=== PATIENT | female | born 1945 | race Caucasian/White ===

== ENCOUNTER → 2018-05-11 | Outpatient (CLI) | payer MEDICARE ==
[2018-05-11 16:18] LABS: Basophils % (A) 0 %; Eosinophils # (A) 0.1 k/uL (0-0.7); Eosinophils % (A) 3 %; HCT 38.2 % (34.0-46.0); HGB 12.8 gm/dL (11.4-16.0); Lymphocytes # (A) 1.3 k/uL (1.0-4.8); Lymphocytes % (A) 25 %; MCH 30.6 pg (25.0-35.0); MCHC 33.6 g/dL (31.0-37.0); MCV 91.2 fL (80.0-100.0); Mean Platelet Volume 7.9; Monocytes # (A) 0.3 k/uL (0-1.0); Monocytes % (A) 6 %; Neutrophils # (A) 3.4 k/uL (1.3-7.7); Neutrophils % (A) 65 %; Platelet Count 186 k/uL (150-450); RDW 12.8 % (11.5-15.5); WBC 5.3 k/uL (3.8-10.6)
[2018-05-11 16:20] LABS: Appearance,Urine Clear (Clear); Bilirubin,Urine Negative (Negative); Blood,Urine Negative (Negative); Color,Urine Light Yellow; Glucose,Urine (UA) Negative (Negative); Ketones,Urine Negative (Negative); Leukocyte Esterase,Urine Negative (Negative); Nitrite,Urine Negative (Negative); PH, Urine 6.5 (5.0-8.0); Protein,Urine Negative (Negative); Specific Gravity,Urine 1.007 (1.001-1.035); Urobilinogen,Urine <2.0 mg/dL (<2.0)
[2018-05-11 16:26] LABS: Partial Thromboplastin Time 24.1 sec (22.0-30.0); Prothrombin Time 9.8 sec (9.0-12.0)
[2018-05-11 16:29] LABS: ALT 31 U/L (9-52); AST 27 U/L (14-36); Albumin 4.1 g/dL (3.5-5.0); Alkaline Phosphatase 82 U/L (38-126); Anion Gap 8 mmol/L; Blood Urea Nitrogen 16 mg/dL (7-17); Calcium 9.8 mg/dL (8.4-10.2); Carbon Dioxide 29 mmol/L (22-30); Chloride 100 mmol/L (98-107); Glucose 94 mg/dL (74-99); Sodium 137 mmol/L (137-145); Total Bilirubin 0.5 mg/dL (0.2-1.3)
== END | disposition home or self-care (01) ==
LOC: LABPAT 15:36
PROVIDERS: ATTEND Orthopaedic Surgery
DX: Z01.812 Encounter for preprocedural laboratory examination (principal); Z79.01 Long term (current) use of anticoagulants
CPT/HCPCS: 80053; 81003; 85025; 85610; 85730; 87070

== ENCOUNTER 2018-05-19 09:57 | Inpatient (IN) | payer MEDICARE ==
[2018-05-18 08:37] VITALS: BMI 44.1
[~2018-05-19 09:57] MED LIST: ACETAMINOPHEN TAB 500 MG TAB PO ONE; DEXAMETHASONE SOD PHOSPHATE 10 MG/ML 1 ML VIAL IV ONE; HYDROmorphone 0.5 MG/0.5 ML SYRINGE IVP PRN; MELOXICAM 7.5 MG TAB PO ONE; MORPHINE SULFATE 2 MG/ML SYRINGE IV PRN; ONDANSETRON 4 MG/2 ML VIAL IVP ONE; ONDANSETRON 4 MG/2 ML VIAL IVP PRN; ROPIVACAINE 246.25 MG, EPINEPHrine 0.5 MG, KETOROLAC 30 MG, cloNIDine HCL/PF 80 MCG, WA... MISCELLANE ONE; TRANEXAMIC ACID 1,000 MG in SODIUM CHLORIDE 0.9% 50 ML IVPB ONE; ceFAZolin IN SWFI 2 GM/20 ML SYRINGE IVP ONE
[2018-05-19] MEDS: LACTATED RINGERS 1,000 ML IV SCH ×2 (12:16→21:11)
[2018-05-19] MEDS ORDERED: LIDOCAINE 1% 20 ML VIAL (10MG/ML) FOR IV START INTRADERMA ONE (12:16)
[2018-05-19] MEDS ORDERED: fentaNYL (PF) 50 MCG/ML 2 ML AMP ONE (13:15)
[2018-05-19] MEDS ORDERED: PROPOFOL 10 MG/ML 20 ML VIAL IV ONE (13:15)
[2018-05-19] MEDS ORDERED: MIDAZOLAM 2 MG/2 ML VIAL ONE (13:15)
[2018-05-19] MEDS ORDERED: LIDOCAINE 1% INJ 10MG/ML (20 ML MDV) ONE (13:15)
[2018-05-19] MEDS ORDERED: SODIUM CHLORIDE 0.9% 100 ML BAG ONE (13:15)
[2018-05-19] MEDS ORDERED: TRANEXAMIC ACID 1,000 MG/10 ML VIAL ONE (13:15)
[2018-05-19] MEDS ORDERED: BUPIVACAINE (PF) 0.5% 30 ML VIAL ONE (13:15)
[2018-05-19] MEDS ORDERED: NALOXONE 0.4 MG/ML 1 ML VIAL IV PRN (13:43)
[2018-05-19] MEDS ORDERED: NA PHOS,M-B/NA PHOS,DI-BA 133 ML ENEMA RECTAL PRN (13:43)
[2018-05-19] MEDS ORDERED: MAGNESIUM HYDROXIDE 2,400 MG/10 ML CUP PO PRN (13:43)
[2018-05-19] MEDS ORDERED: HYDROcodone/APAP 5-325MG 1 EACH TAB PO PRN (13:43)
[2018-05-19] MEDS ORDERED: HYDROmorphone 1 MG/ML 1 ML SYRINGE IVP PRN ×3 (13:43)
[2018-05-19] MEDS ORDERED: BISACODYL 10 MG SUPP RECTAL PRN (13:43)
[2018-05-19] MEDS ORDERED: DIAZEPAM 5 MG TAB PO PRN (13:43)
[2018-05-19] MEDS ORDERED: LACTATED RINGERS 1,000 ML IV ONE (14:10)
--- NOTE | 2018-05-19 14:13 | P.OP ---
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 Anesthesia: spinal Surgeon: Abdi Gomes Pumper Gauger #1: Veena Astudillo Estimated Blood Loss (ml): 50 Pathology: none sent Condition: stable Disposition: PACU Indications for Procedure: This is a 72-year-old female has had a prior left total knee arthroplasty performed by my associate Dr. Cabrera approximately 13 years ago. She has been experiencing pain and swelling in her knee, and the x-rays demonstrate wear of the polyethylene of the left total knee. After discussing the surgical nonsurgical treatment options with her at length, I recommended a revision of the polyethylene liner and informed consent was obtained. Operative Findings: Operative findings are consistent with failure of the polyethylene liner of the left total knee. Description of Procedure: Patient was seen in the preoperative area consent was reviewed and operative site was marked with a skin marker. Patient was then brought to the operating room and given preoperative antibiotics intravenously. A spinal anesthetic was administered by the anesthesia department. A tourniquet was placed on the upper thigh and the lower extremity was prepped and draped in usual sterile fashion. A gram of transexamic acid was given. A universal timeout was then performed which confirmed the patient's name, surgical site, ALLERGIES, and consent. The lower extremity was then exsanguinated and tourniquet was inflated to 250 mmHg. A standard and anterior midline approach to the knee was performed. The skin and subcutaneous tissue was dissected down to the patellar tendon, with the prior scar being excised.. A medial parapatellar arthrotomy was then performed. The knee was then extended, the patellar was everted, and the knee was again flexed. The polyethylene was inspected, and found to be extensively worn, mostly posterior. There was a moderate amount of metallosis within the knee as well. The locking pin was then removed and the old polyethylene was then removed without incident. The metallosis was then removed with a Ronguer, the knee was copiously irrigated with pulsatile lavage. The components were inspected and found to be well fixed. The trial polyethylene was then placed, the knee was able to fully extend and flex to 115 and was stable throughout. The trial was then removed. The posterior structures were injected with the ropivacaine solution. The knee was also irrigated with Irrisept solution. The final polyethylene was then placed and the locking pin placed. Again, the knee was taken through a full range of motion and was found to be stable through 0-115. The remaining soft tissues were then injected with a ropivacaine solution, which consisted of 246.25 mg of ropivacaine, 0.5 mg of epinephrine, 30 mg of Toradol, 80 g of clonidine, and 48.45 mL of sterile water, for a total of 100 mL of fluid injected. The tourniquet was released, and hemostasis was obtained. A second gram of transexamic acid was given. The knee was again irrigated. The knee was again taken through range of motion and found to be stable throughout all range of motion of 0-130, and the patella tracked normally. The fascia was then closed with #2 strata fix suture. The subcutaneous tissue was closed with 3-0 Vicryl and 3-0 strata fix. Dermabond glue was used for the skin and placed with the knee in flexion. The patient was placed in a sterile silver dressing. Patient was then transferred to recovery room in stable condition. The acute care nursing assistant KAUSHIK Louise was required due the complexity surgery and the need for a skilled surgical orderly. She assisted in positioning, draping, retraction, and closure of the wound.
--- NOTE | 2018-05-19 15:38 | XR ---
EXAMINATION TYPE: XR knee limited LT DATE OF EXAM: 05/19/2018 COMPARISON: NONE TECHNIQUE: Two views submitted HISTORY: Post op FINDINGS: There is a prosthetic knee in near anatomic alignment. There is soft tissue edema and emphysema. Di ffuse osteopenia noted. IMPRESSION: 1. Postoperative change. Appears in near-anatomic alignment
[2018-05-19] MEDS ORDERED: ceFAZolin 3 GM in SODIUM CHLORIDE 0.9% 100 ML IVPB SCH (16:00)
[2018-05-19] MEDS: HYDROmorphone 1 MG/ML 1 ML SYRINGE IVP ONE ×2 (16:32→16:42)
[2018-05-19] MEDS ORDERED: hydrOXYzine HCL 25 MG TAB PO PRN (19:32)
[2018-05-19] MEDS ORDERED: SENNOSIDES-DOCUSATE SODIUM 1 EACH TAB PO SCH (21:00)
[2018-05-19] MEDS ORDERED: FLUTICASONE 50MCG/SPRAY NASAL 16GM EA NOSTRIL SCH (21:00)
[2018-05-19] MEDS: HYDROcodone/APAP 5-325MG 1 EACH TAB PO PRN (21:21)
[2018-05-19] MEDS: SODIUM CHLORIDE 0.9% 1,000 ML IV SCH (21:21)
--- NOTE | 2018-05-20 05:14 | CONS ---
CONSULTATION POSTOPERATIVE CONSULTATION Consultation regarding postoperative medical management. HISTORY OF PRESENT ILLNESS: This 72-year-old female is status post left knee surgery. The patient did relatively well. She is awake, alert. The patient is seen postoperatively this evening at about 7:45 p.m. PAST MEDICAL HISTORY: Significant for hypertension, degenerative arthritis, hypothyroidism, and recurrent urticaria. PAST SURGICAL HISTORY: Significant for bilateral knee arthroplasties. PERSONAL HISTORY: Nonsmoker. No alcohol. MEDICATIONS: Medications at present include cefazolin, hydrocodone and hydromorphone. The patient is on enalapril hydrochlorothiazide 5/12.5 two daily, levothyroxine 25 mcg daily, hydroxyzine 25 mg at bedtime p.r.n. and Flonase nasal inhaler. SOCIAL HISTORY: Patient , lives with her spouse. Works as a school resource officer. FAMILY MEDICAL HISTORY: Son in good health. REVIEW OF SYSTEMS: NEURO: Denies any headaches, dizziness. PSYCH: No anxiety, depression. CARDIAC: No chest pain, angina, palpitation. RESPIRATORY: No shortness of breath, cough, hemoptysis. GI: No nausea, vomiting, abdominal pain, diarrhea. : No symptoms of dysuria, hematuria. EXTREMITIES: Some pain, burning pain at the left knee. CONSTITUTIONAL: No fever, chills. PHYSICAL EXAMINATION: Pleasant female, at present in no distress. Vital signs reveals at the time of my evaluation the patient's heart rate was 74, blood pressure 100/70, afebrile, respiratory rate 18, pulse ox 97%. HEENT: Normocephalic. NECK: Supple. No JVD. CHEST: Clear to auscultation and percussion. CARDIAC: Normal S1, S2 with no gallops or murmurs. ABDOMEN: Soft. Bowel sounds present. Extremities reveal no edema. Good pulses both upper extremities. Bilateral pedal pulses are normal. NEUROLOGIC: Awake, alert, oriented with well-coordinated movements both upper extremities. LABORATORY ASSESSMENT: None new. ASSESSMENT: 1. History of hypertension. 2. Hypothyroidism on replacement therapy. 3. Degenerative arthritis especially affecting the knee joints. 4. Obesity. PLAN: The patient is stable. Continue present medical regimen. Patient's condition discussed with the patient. Prognosis is guarded. The patient's blood pressure since it has been on the lower side, will hold the patient's tomorrow. The patient condition discussed with the patient. Prognosis guarded. MMODL / IJN: [id number] /
[2018-05-20] MEDS ORDERED: LEVOTHYROXINE 25 MCG TAB PO SCH (06:30)
[2018-05-20] MEDS: SODIUM CHLORIDE 0.9% 1,000 ML IV SCH (07:22)
[2018-05-20 08:10] VITALS: BP 121/75; PULSE 81; RESP 20; TEMP 98.1
[2018-05-20] MEDS: HYDROcodone/APAP 5-325MG 1 EACH TAB PO PRN (08:19)
[2018-05-20] MEDS: HYDROCHLOROTHIAZIDE 25 MG TAB PO SCH ×2 (08:19→09:49)
[2018-05-20] MEDS ORDERED: RIVAROXABAN 10 MG TAB PO SCH (09:00)
[2018-05-20] MEDS ORDERED: LISINOPRIL 20 MG TAB PO SCH (09:00)
[2018-05-20 09:31] LABS: Basophils % (A) 0 %; Eosinophils # (A) 0.1 k/uL (0-0.7); Eosinophils % (A) 1 %; HCT 36.2 % (34.0-46.0); HGB 11.8 gm/dL (11.4-16.0); Lymphocytes # (A) 1.1 k/uL (1.0-4.8); Lymphocytes % (A) 13 %; MCH 29.9 pg (25.0-35.0); MCHC 32.6 g/dL (31.0-37.0); MCV 91.9 fL (80.0-100.0); Mean Platelet Volume 8.2; Monocytes # (A) 0.4 k/uL (0-1.0); Monocytes % (A) 5 %; Neutrophils % (A) 81 %; Platelet Count 169 k/uL (150-450); RBC 3.94 m/uL (3.80-5.40); RDW 12.7 % (11.5-15.5); WBC 8.7 k/uL (3.8-10.6)
--- NOTE | 2018-05-20 09:45 | P.DS ---
Providers Date of admission: 05/19/18 11:15 Expected date of discharge: 05/20/18 Attending physician: Abdi Gomes Consults: 05/19/18 13:43 Consult Physician Routine Consulting Provider: Ravindra Castano Consult Reason/Comments: medical management Do you want consulting provider notified?: Yes Primary care physician: Ravindra Castano - Discharge Diagnosis(es) (1) Polyethylene liner wear following total knee arthroplasty requiring isolated polyethylene liner exchange Current Visit: Yes Status: Acute Hospital Course: This is a 72-year-old female with known history of left total knee arthroplasty with polyethylene wear. The patient presents for evaluation. After discussion and consideration patient elects to proceed with revision left total knee arthroplasty. The patient is seen preoperatively by Dr. Gomes and medically cleared for surgery by their primary care physician. Patient is admitted to [facility] on 05/19/2018 for revision total knee arthroplasty. The procedures performed without complication or sequelae. The patient is doing well postoperatively. Labs and vital signs are stable on day of discharge. On day of discharge patient's knee incision is healing well. There is minimal erythema. There is no drainage noted at this time. There is minimal soft tissue swelling to the knee. Patient has full foot and ankle motion without difficulty or pain. Neurovascular status to the left lower extremity is intact. Patient is discharged home in good condition. Please see med rec for accurate list of home medications. Plan - Discharge Summary Discharge Rx Participant: Yes New Discharge Prescriptions: New HYDROcodone/APAP 5-325MG [[place] 5-325] 1 - 2 tab PO Q4-6H PRN #84 tab PRN Reason: Pain Rivaroxaban [Xarelto] 10 mg PO DAILY #30 tab Sennosides [Senokot] 1 tab PO BID #60 tablet No Action HYDROcodone/APAP 7.5-325MG [[place] 7.5-325] 1 tab PO Q6HR PRN PRN Reason: Pain Fluticasone Nasal [place] [Flonase Nasal [place]] 2 spr EA NOSTRIL HS Enalapril/Hydrochlorothiazide [Vaseretic 5-12.5 mg] 2 tab PO DAILY hydrOXYzine HCL 25 mg PO HS PRN PRN Reason: Itching Levothyroxine Sodium 25 mcg PO DAILY Discharge Medication List Enalapril/Hydrochlorothiazide [Vaseretic 5-12.5 mg] 2 tab PO DAILY 05/18/18 [ History] Fluticasone Nasal [place] [Flonase Nasal [place]] 2 spr EA NOSTRIL HS 05/18/18 [ History] HYDROcodone/APAP 7.5-325MG [[place] 7.5-325] 1 tab PO Q6HR PRN 05/18/18 [History] Levothyroxine Sodium 25 mcg PO DAILY 05/18/18 [History] hydrOXYzine HCL 25 mg PO HS PRN 05/18/18 [History] HYDROcodone/APAP 5-325MG [[place] 5-325] 1 - 2 tab PO Q4-6H PRN #84 tab 05/20/18 [ Rx] Rivaroxaban [Xarelto] 10 mg PO DAILY #30 tab 05/20/18 [Rx] Sennosides [Senokot] 1 tab PO BID #60 tablet 05/20/18 [Rx] Follow up Appointment(s)/Referral(s): Abdi Gomes DO [Doctor of Osteopathic Medicine] - 2 Weeks Ambulatory/Diagnostic Orders: Continuous Passive Motion (CPM) Machine [DME.AMB1] Time Frame: 3 Weeks, Location : None Selected Activity/Diet/Wound Care/Special Instructions: Weightbearing as tolerated with a walker. CPM 5-6h daily. Leave dressing intact. May be removed by home care nurse in 10 days. May shower with dressing on. Please follow up with [facility] and call with any questions or concerns, . Discharge Disposition: HOME WITH HOME HEALTH SERVICES
--- NOTE | 2018-05-20 23:39 | PN ---
PROGRESS NOTE ATTENDING PHYSICIAN: Dr. Jyotsna Castano HISTORY OF PRESENT ILLNESS: This 72-year-old was admitted to the hospital and undergone left knee revision. The patient has had a previous total knee arthroplasty. She has underlying history of hypertension, hypothyroidism, and doing fairly well. REVIEW OF SYSTEMS: Neuro: Has a headache. No dizziness. No double vision. Psych: No anxiety or depression. Cardiac: No chest pain, angina, palpitations. Respiratory: No shortness of breath, cough, hemoptysis. GI no nausea, vomiting, abdominal pain, diarrhea. : No symptoms of dysuria, hematuria. : Extremities pain in the left knee joint. Constitutional: No fever or chills. PHYSICAL EXAMINATION: Pleasant female in no distress. Vital signs revealed temperature 98.1, pulse 81, respirations 20, blood pressure 121/75, pulse ox 98% on room air. HEENT: Normocephalic. NECK: Supple. No JVD. CHEST: Clear to auscultation and percussion. Cardiac: Normal S1, S2 with no gallops, murmurs. ABDOMEN: Soft. Bowel sounds normal. Extremities revealed trace edema at the ankles. Neurologically: Awake, alert, oriented x3 with well-coordinated movements both upper extremities. LABORATORY ASSESSMENT: CBC which was normal. ASSESSMENT: 1. Hypertension on medical therapy. 2. Hypothyroidism. 3. Degenerative arthritis, status post left knee surgery. PLAN: The patient is stable. Continue present medical regimen. Patient's condition discussed with the patient. Hold antihypertensives today. The patient will resume her enalapril once the blood pressure starts running greater than 130 at home. The patient's condition discussed with the patient. MMODL / IJN: [id number] /
== END 2018-05-20 14:03 | disposition home health service (06) | DRG 488 ==
LOC: 2ORMAIN 11:15 → 4SSUR 16:56
PROVIDERS: ADMIT Orthopaedic Surgery; ATTEND Orthopaedic Surgery
PROC: 0SUW09Z Supplement Left Knee Joint, Tibial Surface with Liner, Open Approach (ICD-10-PCS; 2018-05-19)
PROC: 0SPD09Z Removal of Liner from Left Knee Joint, Open Approach (ICD-10-PCS; principal; 2018-05-19 13:45)
DX: T84.063A Wear of articular bearing surface of internal prosthetic left knee joint, initial encounter (principal); Z68.41 Body mass index [BMI] 40.0-44.9, adult; T84.023A Instability of internal left knee prosthesis, initial encounter; E03.9 Hypothyroidism, unspecified; I10 Essential (primary) hypertension; L50.9 Urticaria, unspecified; R26.81 Unsteadiness on feet; E66.01 Morbid (severe) obesity due to excess calories; Z79.890 Hormone replacement therapy; Z79.899 Other long term (current) drug therapy; Z90.49 Acquired absence of other specified parts of digestive tract; Z85.828 Personal history of other malignant neoplasm of skin; Z86.718 Personal history of other venous thrombosis and embolism; Z88.1 Allergy status to other antibiotic agents; Z96.651 Presence of right artificial knee joint; Z96.611 Presence of right artificial shoulder joint; Y79.2 Prosthetic and other implants, materials and accessory orthopedic devices associated with adverse incidents
CPT/HCPCS: 85025

== ENCOUNTER → 2018-06-19 | Outpatient (CLI) | payer MEDICARE ==
--- NOTE | 2018-06-19 10:11 | US ---
EXAMINATION TYPE: US venous doppler duplex LE LT DATE OF EXAM: 06/19/2018 7:48 AM COMPARISON: NONE CLINICAL HISTORY: M79.89 Other specified soft tissue disorders. Left knee surgery 05/10. large amount of edema left lower leg. History of DVT SIDE PERFORMED: left TECHNIQUE: The lower extremity deep venous system is examined utilizing real time linear array sonog rudy with graded compression, doppler sonography and color-flow sonography. VESSELS IMAGED: External Iliac Vein (EIV) Common Femoral Vein Deep Femoral Vein Greater Saphenous Vein * Femoral Vein Popliteal Vein Small Saphenous Vein * Proximal Calf Veins (* superficial vessels) Left Leg: No evidence of DVT as visualized. Superficial thrombus noted left small saph vein IMPRESSION: 1. Left lower extremity ultrasound negative for deep venous thrombosis.
== END ==
LOC: RADUSWWP 07:22
PROVIDERS: ATTEND Internal Medicine
DX: M79.89 Other specified soft tissue disorders (principal)

== ENCOUNTER → 2019-02-25 | Outpatient (CLI) | payer MEDICARE ==
--- NOTE | 2019-03-01 09:32 | MM ---
Reason for exam: screening (asymptomatic). Last mammogram was performed 2 years and 2 months ago. History: Patient is postmenopausal and history of other cancer. Physical Findings: A clinical breast exam by your physician is recommended on an annual basis and results should be correlated with mammographic findings. MG 3D Screening Mammo W/Cad Bilateral CC and MLO view(s) were taken. Prior study comparison: January 02, 2017, mammogram. October 08, 2013, mammogram. There is chronic nodularity in the left breast. Scattered benign oil cyst calcifications greater in the left breast. No significant changes when compared with prior studies. ASSESSMENT: Benign, BI-RAD 2 RECOMMENDATION: Routine screening mammogram of both breasts in 1 year.
== END | disposition home or self-care (01) ==
LOC: RADMAMWWP 16:41
PROVIDERS: ATTEND Internal Medicine
DX: Z12.31 Encounter for screening mammogram for malignant neoplasm of breast (principal)
CPT/HCPCS: 77063; 77067

== ENCOUNTER 2019-07-21 07:50 | Day surgery (SDC) | payer MEDICARE ==
[2019-07-19 18:03] VITALS: BMI 39.9
[~2019-07-21 07:50] MED LIST changes: -ACETAMINOPHEN TAB 500 MG TAB PO ONE; -DEXAMETHASONE SOD PHOSPHATE 10 MG/ML 1 ML VIAL IV ONE; -HYDROmorphone 0.5 MG/0.5 ML SYRINGE IVP PRN; +LACTATED RINGERS 1,000 ML IV SCH; +LIDOCAINE 1% (10MG/ML) FOR IV START INTRADERMA PRN; -MELOXICAM 7.5 MG TAB PO ONE; -MORPHINE SULFATE 2 MG/ML SYRINGE IV PRN; -ONDANSETRON 4 MG/2 ML VIAL IVP ONE; -ONDANSETRON 4 MG/2 ML VIAL IVP PRN; -ROPIVACAINE 246.25 MG, EPINEPHrine 0.5 MG, KETOROLAC 30 MG, cloNIDine HCL/PF 80 MCG, WA... MISCELLANE ONE; -TRANEXAMIC ACID 1,000 MG in SODIUM CHLORIDE 0.9% 50 ML IVPB ONE; -ceFAZolin IN SWFI 2 GM/20 ML SYRINGE IVP ONE
[2019-07-21 08:21] VITALS: TEMP 98.2
[2019-07-21] MEDS ORDERED: LIDOCAINE 1% INJ 10MG/ML (20 ML MDV) ONE (08:54)
[2019-07-21] MEDS ORDERED: PROPOFOL 10 MG/ML 20 ML VIAL IV ONE (08:54)
--- NOTE | 2019-07-21 09:17 | P.PCN ---
Date of Procedure: 07/21/19 Procedure(s) Performed: BRIEF HISTORY: Patient is a 74-year-old pleasant white female scheduled for an elective colonoscopy as a part of screening for colorectal neoplasia. Her last colonoscopy was 10 years ago. PROCEDURE PERFORMED: Colonoscopy with biopsy and snare polypectomy PREOPERATIVE DIAGNOSIS: Screening for colon cancer. IV sedation per Anesthesia. PROCEDURE: After informed consent was obtained, the patient, was brought into the endoscopy unit. IV sedation was administered by Anesthesia under continuous monitoring. Digital rectal examination was normal. Initially the Olympus CF-160 flexible video colonoscope was then inserted in the rectum, gradually advanced into the cecum without any difficulty. Careful examination was performed as the scope was gradually being withdrawn. Ileocecal valve and the appendiceal orifice were visualized and appeared normal. Prep was excellent. Mucosa of the cecum appeared normal. In the Ascending colon there was a 2 mm polyp that was removed by biopsy. Rest of the, ascending colon, transverse colon, descending colon, sigmoid colon, and rectum appeared normal. The proximal rectum there was a 5 limited polyp that was removed by snare polypectomy Retroflexion was performed in the rectum and no lesions were seen. The patient tolerated the procedure well. IMPRESSION: 2 mm ascending colon polyp status post removal by cold biopsy 5 mm proximal rectal polyp status post snare polypectomy RECOMMENDATIONS: Findings of this examination were discussed with the patient as well as a family. She was advised to follow with the biopsy results. If the biopsy shows an adenoma she can have a repeat colonoscopy in 5
[2019-07-21 09:23] VITALS: RESP 16
[2019-07-21 09:32] VITALS: BP 116/74; PULSE 77
== END 2019-07-21 09:49 | disposition home or self-care (01) ==
LOC: ORWHC2ENDO 07:50
PROVIDERS: ATTEND Internal Medicine Gastroenterology
DX: Z12.11 Encounter for screening for malignant neoplasm of colon (principal); D12.2 Benign neoplasm of ascending colon; K62.1 Rectal polyp; M19.90 Unspecified osteoarthritis, unspecified site; Z79.899 Other long term (current) drug therapy; Z79.891 Long term (current) use of opiate analgesic; Z88.1 Allergy status to other antibiotic agents; Z79.890 Hormone replacement therapy; Z91.89 Other specified personal risk factors, not elsewhere classified
CPT/HCPCS: 88305; 45380; 45385; J2001; J2704

== ENCOUNTER → 2020-07-04 | Outpatient (CLI) | payer MEDICARE ==
--- NOTE | 2020-07-06 13:51 | MM ---
Reason for exam: screening (asymptomatic). Last mammogram was performed 1 year and 4 months ago. History: Patient is postmenopausal and has history of other cancer at age 59. Physical Findings: A clinical breast exam by your physician is recommended on an annual basis and results should be correlated with mammographic findings. MG 3D Screening Mammo W/Cad Bilateral CC and MLO view(s) were taken. Prior study comparison: February 25, 2019, bilateral MG 3d screening mammo w/cad. January 02, 2017, mammogram. There are scattered fibroglandular densities. There is chronic nodularity in the right breast anteriorly and the left breast centrally. Benign oil cysts on the left. No significant changes when compared with prior studies. ASSESSMENT: Benign, BI-RAD 2 RECOMMENDATION: Routine screening mammogram of both breasts in 1 year.
== END | disposition home or self-care (01) ==
LOC: RADMAMWWP 13:12
PROVIDERS: ATTEND Internal Medicine
DX: Z12.31 Encounter for screening mammogram for malignant neoplasm of breast (principal)
CPT/HCPCS: 77063; 77067

== ENCOUNTER → 2020-07-05 | Outpatient (CLI) | payer MEDICARE ==
--- NOTE | 2020-07-06 06:41 | BD ---
EXAMINATION TYPE: Axial Bone Density DATE OF EXAM: 07/05/2020 COMPARISON: 03/05/2002 report. CLINICAL HISTORY: Postmenopausal female Height: 65.5 IN Weight: 282 LBS FRAX RISK QUESTIONS: Family History (Parent hip fracture): YES MOTHER History of Fracture in Adulthood: LT FOOT FX AGE 69 RISK FACTORS HISTORY OF: Active: MODERATE Diet low in dairy products/other sources of calcium: YES Postmenopausal woman: AGE 49 Take estrogen and/or progesterone medications: NOT NOW How lon YEARS Lost more than 2 inches in height since high school: YES 3" MEDICATIONS: Thyroid Medications: YES Which medication: Levothyroxine How Lon+ YEARS Additional Medications: LEVOTHYROXINE,BLOOD PRESSURE MEDS, ATARAX,NASAL SPRAY FOR ALLERGIES EXAM MEASUREMENTS: Bone mineral densitometry was performed using the [employer] System. Bone mineral density as measured about the Lumbar spine is: ----- L1-L4(G/cm2): 1.383 T Score Values are as follows: ----- L2: 3.2 ----- L3: 2.5 ----- L4: 0.8 ----- L1-L4: 1.7 Bone mineral density has: Increased 9.1% since study of: 03/05/2002 Bone mineral density about the R hip (g/cm2): 0.908 Bone mineral density about the L hip (g/cm2): 0.850 T Score values are as follows: -----R Neck: -0.9 -----L Neck: -1.3 -----R Total: -0.9 -----L Total: -1.5 Bone mineral density has: Decreased -14.1% since study of: 03/05/2002 IMPRESSION: Osteopenia (T Score between -2.5 and -1) in both hips. There is slightly increased risk of fracture and the patient may be considered for treatment. Re-Screen 2-5 years. NOTE: T-SCORE=SD OF THE YOUNG ADULT MEAN.
== END | disposition home or self-care (01) ==
LOC: RADBDWWP 16:07
PROVIDERS: ATTEND Internal Medicine
DX: Z13.820 Encounter for screening for osteoporosis (principal); M85.89 Other specified disorders of bone density and structure, multiple sites; Z78.0 Asymptomatic menopausal state
CPT/HCPCS: 77080

== ENCOUNTER → 2021-08-31 | Outpatient (CLI) | payer MEDICARE ==
--- NOTE | 2021-09-03 11:06 | MM ---
Reason for exam: screening (asymptomatic). Last mammogram was performed 1 year and 2 months ago. History: Patient is postmenopausal and has history of other cancer at age 59. Physical Findings: A clinical breast exam by your physician is recommended on an annual basis and results should be correlated with mammographic findings. MG 3D Screening Mammo W/Cad Bilateral CC, MLO, and XCCL view(s) were taken. Prior study comparison: July 04, 2020, bilateral MG 3d screening mammo w/cad. February 25, 2019, bilateral MG 3d screening mammo w/cad. There are scattered fibroglandular densities. Stable benign calcifications. There is no discrete abnormality. No significant changes when compared with prior studies. ASSESSMENT: Benign, BI-RAD 2 RECOMMENDATION: Routine screening mammogram of both breasts in 1 year.
== END | disposition home or self-care (01) ==
LOC: RADMAMWWP 11:19
PROVIDERS: ATTEND Internal Medicine
DX: Z12.31 Encounter for screening mammogram for malignant neoplasm of breast (principal); Z78.0 Asymptomatic menopausal state
CPT/HCPCS: 77063; 77067

== ENCOUNTER → 2022-10-17 | Outpatient (CLI) | payer MEDICARE ==
--- NOTE | 2022-10-18 08:27 | MM ---
Reason for Exam: Screening (asymptomatic). Last mammogram was performed 1 year(s) and 1 month(s) ago. Patient History: Menarche at age 11. First Full-Term at age 25. Postmenopausal. Other cancer, age 59. Risk Values: [place] 5 year model risk: 1.9%. NCI Lifetime model risk: 3.4%. Prior Study Comparison: 02/25/2019 Bilateral Screening Mammogram, [facility]. 07/04/2020 Bilateral Screening Mammogram, [facility]. 08/31/2021 Bilateral Screening Mammogram, [facility]. Tissue Density: There are scattered fibroglandular densities. Findings: Analyzed By CAD. A few tiny scattered benign-appearing round calcifications bilaterally are redemonstrated. There is no suspicious group of microcalcifications or new suspicious mass in either breast. Overall Assessment: Benign, BI-RAD 2 Management: Screening Mammogram of both breasts in 1 year. . Patient should continue monthly self-breast exams. A clinical breast exam by your physician is recommended on an annual basis. This exam should not preclude additional follow-up of suspicious palpable abnormalities. Note on Olya scores and lifetime risk: 1. A Olya score greater than 3% is considered moderate risk. If this is the case, consider specialist referral to assess eligibility for a risk reducing agent. 2. If overall lifetime risk for the development of breast cancer is 20% or higher, the patient may qualify for future screening with alternating mammogram and breast MRI. Electronically signed and approved by: Mp Mcdonnell M.D.
== END | disposition home or self-care (01) ==
LOC: RADMAMWWP 15:58
PROVIDERS: ATTEND Family Medicine
DX: Z12.31 Encounter for screening mammogram for malignant neoplasm of breast (principal); Z78.0 Asymptomatic menopausal state
CPT/HCPCS: 77063; 77067

== ENCOUNTER → 2023-02-27 | Outpatient (CLI) | payer MEDICARE ==
--- NOTE | 2023-02-27 19:51 | BD ---
EXAMINATION TYPE: Axial Bone Density DATE OF EXAM: 02/27/2023 CLINICAL HISTORY: 77 years old Female. ICD-10 CODE: Z78.0 ASYMPTOMATIC MENOPAUSAL STATE Height: 65.3 Weight: 245 FRAX RISK QUESTIONS: Family History (Parent hip fracture): yes Glucocorticoids (More than 3mos): yes, for allergies and illness (Ex: prednisone, prednisolone, methylprednisolone, dexamethasone, and hydrocortisone). History of Fracture in Adulthood: yes RISK FACTORS HISTORY OF: hx of foot fracture as an adult, Family History of Osteoporosis: yes, mother Diet low in dairy products/other sources of calcium: yes Postmenopausal woman: at 49 Take estrogen and/or progesterone medications: in the past for 5 yrs. Lost more than 2 inches in height since high school: yes Frequent falls: unsteady Hyperparathyroidism: no Adrenal Insufficiency: no MEDICATIONS: Prednisone or other steroids: Flonase steriod spray, for many yrs Thyroid Medications: yes, synthroid product for 9 yrs Additional Medications: bp meds, allergy meds, atarax, vit d and calcium, nsaids, pain meds Additional History: osteoarthritis, allergies, hypertension, EXAM MEASUREMENTS: Bone mineral densitometry was performed using the American Board of Addiction Medicine (ABAM) System. Bone mineral density as measured about the Lumbar spine is: ----- L1-L4(G/cm2): 1.283 T Score Values are as follows: ----- L1: -0.2 ----- L2: 1.0 ----- L3: 1.7 ----- L4: 0.6 ----- L1-L4: 0.9 Z Score Values are as follows: ----- L1: 0.5 ----- L2: 1.6 ----- L3: 2.3 ----- L4: 1.2 ----- L1-L4: 1.5 Bone mineral density has: Decreased -7.2% since study of: 07.05.2020 Bone mineral density about the R hip (g/cm2): 0.825 Bone mineral density about the L hip (g/cm2): 0.765 T Score values are as follows: -----R Neck: -1.6 -----L Neck: -1.9 -----R Total: -1.5 -----L Total: -1.9 Z Score values are as follows: -----R Neck: -0.3 -----L Neck: -0.6 -----R Total: -0.4 -----L Total: -0.8 Bone mineral density has: Decreased 7.1% since study of: 07.05.2020 FRAX%s: The graph provided illustrates a 45.6% chance for a major osteoporotic fx and a 29.4% chance for the hips probability for fx in 10 years time. IMPRESSION: Osteopenia (T Score between -2.5 and -1). There is slightly increased risk of fracture and the patient may be considered for treatment. Re-Screen 2-5 years. NOTE: T-SCORE=SD OF THE YOUNG ADULT MEAN.
== END | disposition home or self-care (01) ==
LOC: RADBDWWP 12:40
PROVIDERS: ATTEND Family Medicine
DX: M85.89 Other specified disorders of bone density and structure, multiple sites (principal); Z78.0 Asymptomatic menopausal state
CPT/HCPCS: 77080

== ENCOUNTER → 2023-10-23 | Outpatient (CLI) | payer MEDICARE ==
--- NOTE | 2023-10-24 09:29 | MM ---
Reason for Exam: Screening (asymptomatic). Last mammogram was performed 1 year(s) and 1 month(s) ago. Patient History: Menarche at age 11. First Full-Term at age 25. Postmenopausal. Other cancer, age 59. Risk Values: Olya 5 year model risk: 1.9%. NCI Lifetime model risk: 3.1%. Prior Study Comparison: 07/04/2020 Bilateral Screening Mammogram, [facility]. 08/31/2021 Bilateral Screening Mammogram, [facility]. 10/17/2022 Bilateral MG 3D screening mammo w/cad, [facility]. Tissue Density: The breasts are almost entirely fatty. Findings: Analyzed By CAD. Right breast: There is no suspicious group of microcalcifications or new suspicious mass. Left breast: There is no suspicious group of microcalcifications or new suspicious mass. Overall Assessment: Negative, BI-RAD 1 Management: Screening Mammogram of both breasts in [address] [facility] will attempt to contact patient to return for supplemental views and ultrasound if indicated. Patient should continue monthly self-breast exams. A clinical breast exam by your physician is recommended on an annual basis. This exam should not preclude additional follow-up of suspicious palpable abnormalities. Note on Olya scores and lifetime risk: 1. A Olya score greater than 3% is considered moderate risk. If this is the case, consider specialist referral to assess eligibility for a risk reducing agent. 2. If overall lifetime risk for the development of breast cancer is 20% or higher, the patient may qualify for future screening with alternating mammogram and breast MRI. Electronically signed and approved by: Jayy Benson DO
== END | disposition home or self-care (01) ==
LOC: RADMAMWWP 14:24
PROVIDERS: ATTEND Family Medicine
DX: Z12.31 Encounter for screening mammogram for malignant neoplasm of breast (principal); Z78.0 Asymptomatic menopausal state
CPT/HCPCS: 77063; 77067

== ENCOUNTER → 2024-04-27 | Outpatient (CLI) | payer MEDICARE ==
--- NOTE | 2024-04-27 15:57 | XR ---
EXAMINATION TYPE: XR ankle complete LT DATE OF EXAM: 04/27/2024 3:44 PM COMPARISON: None CLINICAL INDICATION: Female, 78 years old with history of L03.90 CELLULITIS, UNSPECIFIED; [facility] TECHNIQUE: XR ankle complete LT; ankle is imaged in frontal, lateral and oblique projections. 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 No radiopaq ue foreign body visualized however overlapping soft tissues limits evaluation around the ankle. [facility], , 04/27/2024 3:55 PM
== END | disposition home or self-care (01) ==
LOC: RADXRMAIN 15:29
PROVIDERS: ATTEND Family Medicine
DX: L03.90 Cellulitis, unspecified (principal)

== ENCOUNTER → 2024-04-28 | Outpatient (CLI) | payer MEDICARE ==
--- NOTE | 2024-04-28 12:53 | US ---
EXAMINATION TYPE: US venous doppler duplex LE LT DATE OF EXAM: 04/28/2024 8:04 AM COMPARISON: NONE CLINICAL INDICATION: Female, 78 years old with history of L03.90 CELLULITIS; cellulitis, Pain, Swelli ng TECHNIQUE: The lower extremity deep venous system is examined utilizing real time linear array sonog rudy with graded compression, color doppler sonography, and spectral doppler. SIDE PERFORMED: Left FINDINGS: VESSELS IMAGED: Common Femoral Vein Deep Femoral Vein Greater Saphenous Vein * Femoral Vein Popliteal Vein Small Saphenous Vein * Proximal Calf Veins (* superficial vessels) Left Leg: Negative for DVT severe edema at ankle, exam limited by edema and habitus IMPRESSION: No ultrasound evidence for deep venous thrombosis. [facility], , 04/28/2024 12:51 PM
== END | disposition home or self-care (01) ==
LOC: RADUSWWP 07:23
PROVIDERS: ATTEND Family Medicine
DX: L03.90 Cellulitis, unspecified (principal)